=== PATIENT | female | born 1935 | race Caucasian/White ===

== ENCOUNTER 2018-05-05 17:58 | Inpatient (IN) | payer MEDICARE, MEDICAID ==
[~2018-05-05] VITALS: Ht 160 cm; Wt 85.3 kg
[~2018-05-05 17:58] MED LIST: ALPR1TAB2 PO; ASPI-1152 PO; ATEN50TA PO; CHOL200026 PO; FLUO20CA36 PO; LOSA100T15 PO; SIMV20TA6 PO; WARF4TAB41 PO
--- NOTE | 2018-05-05 18:30 | NUR ---
82 yo female bb ra from home. patient is alert and oriented, c/o SOB. patient denies any chest pain, patient is noted to be tachycardic. skin warm and dry, resp even and unlabored. sylvia negron from provider
[2018-05-05 18:51] LABS: BASOPHILS # (AUTO) 0.1 /CMM (0.0-0.2); BASOPHILS % (AUTO) 0.9 % (0.0-2.0); HEMATOCRIT 46 % (33-45); HEMOGLOBIN 15.4 g/dL (11.5-14.8); LYMPHOCYTES # (AUTO) 1.6 /CMM (0.8-4.8); LYMPHOCYTES % (AUTO) 20.9 % (20.0-44.0); MEAN CORPUSCULAR HGB CONC 33 g/dl (31.0-36.0); MEAN CORPUSCULAR VOLUME 91 fL (82-100); MONOCYTES # (AUTO) 0.6 /CMM (0.1-1.30); MONOCYTES % (AUTO) 8.3 % (2.0-12.0); NEUTROPHILS # (AUTO) 5.3 /CMM (1.8-8.9); NEUTROPHILS % (AUTO) 68.9 % (43.0-81.0); PLATELET COUNT (AUTO) 243 /CMM (150-450); RDW COEFFICIENT OF VARIATION 13.8 (11.5-15.0); RED BLOOD CELL COUNT(AUTO) 5.11 MIL/uL (4.0-5.2); WHITE BLOOD COUNT (AUTO) 7.7 K/uL (4.3-11.0)
[2018-05-05 19:08] LABS: INR 1.32 (0.85-1.15)
[2018-05-05] MEDS ORDERED: DILTIAZEM HCL 25 MG IV ONE (19:10)
[2018-05-05 19:23] LABS: CALCIUM, SERUM 8.7 mg/dL (8.5-10.1); CARBON DIOXIDE 18 mmol/L (21-32); CHLORIDE 103 mmol/L (98-107); CREATININE 1.4 mg/dL (0.6-1.3); GLUCOSE 126 mg/dL (74-106); POTASSIUM 4.5 mmol/L (3.5-5.1); SODIUM SERUM 135 mmol/L (136-145); UREA NITROGEN, BLOOD 20 mg/dL (7-18)
[2018-05-05 19:28] LABS: ALANINE AMINOTRANSFERASE 113 U/L (12-78); ALBUMIN 3.1 g/dL (3.4-5.0); ALKALINE PHOSPHATASE 78 U/L (46-116); ASPARTATE AMINOTRANSFERASE 42 U/L (15-37); BILIRUBIN,DIRECT 0.2 mg/dL (0.0-0.2); BILIRUBIN,TOTAL 0.6 mg/dL (0.2-1.0); TOTAL PROTEIN, SERUM 6.3 g/dL (6.4-8.2)
--- NOTE | 2018-05-05 19:29 | NUR ---
ACRYLIC FABRICATOR AT BEDSIDE
[2018-05-05] MEDS ORDERED: DILTIAZEM HCL 50 MG IV IV ONE (19:30)
--- NOTE | 2018-05-05 19:30 | NUR ---
IV STARTED BY PARAMEDICS HAS INFILTRATED. NEW LINE STARTED IV 20G RFA
[2018-05-05 19:36] LABS: TROPONIN I < 0.017 ng/mL (0.00-0.056)
[2018-05-05] MEDS ORDERED: IOHEXOL-350 100 ML VIAL IV ONE (19:56)
[2018-05-05] MEDS ORDERED: CT SWABBABLE VALVE TRANS SET 1 EA INFUS.SET MC ONE (19:57)
[2018-05-05] MEDS ORDERED: IV NS 0.9% 500 ML IV ONE (19:57)
[2018-05-05] MEDS ORDERED: IV NS 0.9% 1,000 ML BAG IV ONE (20:00)
[2018-05-05] MEDS ORDERED: CEFTRIAXONE 1 G in IV D5W 50 ML IV ONE (20:30)
[2018-05-05] MEDS ORDERED: methylPREDNISolone SOD SUCC 125 MG/2ML VIAL IV ONE (20:30)
[2018-05-05] MEDS ORDERED: methylPREDNISolone SOD SUCC 125 MG/2ML VIAL ONE (20:43)
[2018-05-05] MEDS ORDERED: CEFTRIAXONE 1 G VIAL ONE (20:43)
[2018-05-05] MEDS ORDERED: AZITHROMYCIN 500 MG VIAL ONE (20:43)
--- NOTE | 2018-05-05 20:48 | NUR ---
ASSIGNED TO [facility]#: [id number], DX: COPD EXACERBATION & A-FIB WITH RVR, ACCEPTING: JAYA RHODES.
[2018-05-05] MEDS ORDERED: HEPARIN SODIUM, PORCINE 5000 UNITS/1 ML VIAL IV ONE (21:00)
[2018-05-05] MEDS: AZITHROMYCIN 500 MG in IV D5W 250 ML IV SCH (21:04)
[2018-05-05] MEDS ORDERED: HEPARIN SODIUM, PORCINE 5000 UNITS/1 ML VIAL ONE (21:17)
[2018-05-05] MEDS ORDERED: HEPARIN INFUSION/D5W 500 ML IV ONE (21:27)
[2018-05-05] MEDS ORDERED: HEPARIN INFUSION/D5W 500 ML IV PRN ×3 (21:30→22:00)
[2018-05-05] MEDS ORDERED: RIVA10TA PO (21:43)
--- NOTE | 2018-05-05 21:43 | NUR ---
REPORT GIVEN TO KOKO
[2018-05-05] MEDS ORDERED: HYDROCODONE/APAP 10/325MG 1 EA TABLET PO PRN (22:00)
[2018-05-05] MEDS ORDERED: IPRATROPIUM NEB FS 0.5 MG/2.5 ML AMPUL.NEB NEB PRN (22:00)
[2018-05-05] MEDS ORDERED: ONDANSETRON HCL/PF 4 MG/2 ML VIAL IVP PRN (22:00)
[2018-05-05] MEDS ORDERED: ALBUTEROL FS 2.5 MG/0.5 ML VIAL.NEB NEB PRN (22:00)
[2018-05-05] MEDS ORDERED: HYDROCODONE/APAP 5/325MG 1 EACH TABLET PO PRN (22:00)
[2018-05-05] MEDS ORDERED: ACETAMINOPHEN 325 MG TABLET PO PRN (22:00)
[2018-05-05] MEDS ORDERED: MAGNESIUM HYDROXIDE 30 ML UDC PO PRN (22:00)
[2018-05-05] MEDS ORDERED: MAG HYDROX/AL HYDROX/SIMETH 30 ML UDC PO PRN (22:00)
[2018-05-05 22:20] VITALS: BP 140/98
--- NOTE | 2018-05-05 22:30 | NUR ---
COMPA RN ADMITTING NOTES PATIENT ADMITTED FROM ER W/ DX ACUTE PULMONARY EMBOLI & ACUTE DYSPNEA UNDER CARE OF JAYA RHODES. ARRIVED VIA BED TO ROOM 103 IN STABLE CONDITION W/ DAUGHTER. A/A/O X4, ABLE TO MAKE NEEDS KNOWN. SOB NOTED UPON EXERTION BUT OTHERWISE TOLERATING O2 @ 3LPM VIA NC. DENIES SOB OR DIFFICULTY BREATHING. ON TELE W/ UNCONTROLLED A-FIB, HR 117. DENIES CHEST PAIN OR DISCOMFORT. RIGHT FOREARM IV #20 INTACT & PATENT W/ DRESSING CDI & HEPARIN DRIP INFUSING WELL @ 1600 UNITS/KG. NO SIGNS OF INFILTRATION NOTED. SKIN ASSESSMENT DONE. SKIN WARM, DRY & INTACT W/ NO SKIN ISSUES IDENTIFIED. SAFETY MEASURES IN PLACE & INSTRUCTED TO USE CALL LIGHT FOR ASSISTANCE. AWAITING ADMITTING ORDERS. WILL CONTINUE TO MONITOR CLOSELY.
[2018-05-05] MEDS: LORAZEPAM 1 MG TABLET PO PRN (23:32)
[2018-05-06 03:43] LABS: HEMATOCRIT 46 % (33-45); HEMOGLOBIN 15.4 g/dL (11.5-14.8); LYMPHOCYTES # (AUTO) 0.7 /CMM (0.8-4.8); LYMPHOCYTES % (AUTO) 11.5 % (20.0-44.0); MEAN CORPUSCULAR HGB CONC 34 g/dl (31.0-36.0); MEAN CORPUSCULAR VOLUME 94 fL (82-100); MONOCYTES % (AUTO) 0.8 % (2.0-12.0); NEUTROPHILS # (AUTO) 5.5 /CMM (1.8-8.9); NEUTROPHILS % (AUTO) 87.7 % (43.0-81.0); PLATELET COUNT (AUTO) 232 /CMM (150-450); RED BLOOD CELL COUNT(AUTO) 4.85 MIL/uL (4.0-5.2); WHITE BLOOD COUNT (AUTO) 6.3 K/uL (4.3-11.0)
[2018-05-06 03:57] LABS: CALCIUM, SERUM 8.7 mg/dL (8.5-10.1); CARBON DIOXIDE 21 mmol/L (21-32); CHLORIDE 102 mmol/L (98-107); CREATININE 1.5 mg/dL (0.6-1.3); GLUCOSE 181 mg/dL (74-106); MAGNESIUM 2.1 mg/dL (1.8-2.4); PHOSPHORUS 3.5 mg/dL (2.5-4.9); POTASSIUM 4.6 mmol/L (3.5-5.1); SODIUM SERUM 134 mmol/L (136-145); UREA NITROGEN, BLOOD 18 mg/dL (7-18)
[2018-05-06 03:59] LABS: CHOLESTEROL 118 mg/dL (<200); HDL CHOLESTEROL 48 mg/dL (40-60); LDL 63 mg/dL (0-99); TRIGLYCERIDES 41 mg/dL (30-150)
[2018-05-06 04:00] VITALS: BP 150/103
--- NOTE | 2018-05-06 05:00 | NUR ---
COMPA RN NOTES RECEIVED PTT RESULT = 178 FROM RHIANNON. NOTIFIED JAYA RHODES W/ ORDER TO RE-DRAW PTT STAT. AWAITING NEW PTT RESULT.
--- NOTE | 2018-05-06 06:40 | NUR ---
RN NOTES CALLED LAB TO FOLLOW UP ON THE REPEAT PTT RESULT C/O PETER; NOT AVAILABLE YET PER PETER; THEY HAVE TO RE RUN THE RESULT
--- NOTE | 2018-05-06 07:29 | NUR ---
COMPA RN NOTES RECEIVED PTT RESULT = >170 FROM PETER. EPIC MD MAO ROBLEDO PAGED. WILL ENDORSE TO AM NURSE.
--- NOTE | 2018-05-06 07:40 | NUR ---
COMPA RN NOTE SPOKE WITH MAO WEST ENVIRONMENTAL ENGINEERING AIDE NOTIFIED ABOUT PTT 170 ,STATED THAT HE IS NOT ASSIGNED TO THIS PATIENT, WILL CALL BACK
[2018-05-06 08:00] VITALS: BP 160/100
--- NOTE | 2018-05-06 08:03 | NUR ---
COMPA WEST NOTE PATIENT IN BED , ALL NEEDS ATTENDED ON HEPARIN DRIP AT THIS TIME ,HOLD DUE TO PTT 170 , SPOKE WITH ALPESH WEST SILK SPREADER ,STATED TO HOLD AND DO PTT IN 6 HOUR REPEAT PATIENT ON TELE MONITOR AFIB1 HR 20 BED I LOWEST AND LOCKED POSITION CALL LIGHT WITHIN REACH, NO S\S BLEEDING NOTED ,BED IN LOWEST AND LOCKED POSITION Addendum: 05/06/18 at 1554 by DURAN MCINTYRE RN HR 120 AFIB , BED IN LOWEST POSITION
[2018-05-06] MEDS: CHOLECALCIFEROL 1,000 UNIT TABLET (VIT D3) PO SCH (08:17)
[2018-05-06] MEDS: PANTOPRAZOLE 40 MG TABLET.DR PO SCH (08:18)
[2018-05-06] MEDS: methylPREDNISolone SOD SUCC 40 MG/ML VIAL IV SCH ×3 (08:19→16:02)
[2018-05-06] MEDS ORDERED: FLUOXETINE HCL 20 MG CAPSULE PO SCH (09:00)
[2018-05-06] MEDS ORDERED: ASPIRIN EC 81 MG TABLET.DR PO SCH (09:00)
[2018-05-06] MEDS ORDERED: ATENOLOL 50 MG TABLET PO SCH (09:00)
--- NOTE | 2018-05-06 09:20 | NUR ---
BOTTLED BEVERAGE INSPECTOR NOTE ASSISTED TO BSC ABLE TO URINATE AND BM, KEEP CLEAN DRY ,CALL LIGHT WITHIN REACH
--- NOTE | 2018-05-06 09:43 | NUR ---
COMPA RN NOTE SPOKE WITH BELINDA JOHNSON RN 3RD GRADE READING TEACHER NOTIFIED THAT ASHLIE BETTS RN 3RD GRADE READING TEACHER OK TO HOLD HEPARIN DRIP AT THIS TIME AND RECHECK PTT AT 1400 , STATED ITS OK
--- NOTE | 2018-05-06 09:49 | NUR ---
DIRECTOR INSTRUCTIONAL MATERIAL NOTE SPOKE WITH DR GASTELUM NOTIFIED THAT PATIENT WAS ON HEPARIN DRIP AND ON HOLD AT THIS TIME 170 PTT ,ORDERED DO PTT 1000 ORDER CARRIED OUT
[2018-05-06] MEDS ORDERED: AZITHROMYCIN 500 MG in IV D5W 250 ML IV SCH (10:00)
--- NOTE | 2018-05-06 11:11 | NUR ---
COMPA RN NOTE PTT 84 STARTED HEPARIN DRIP AT 1400 UNIT \KG PER HOSPITAL PROTOCOL ,WILL DO PTT AT 1700
--- NOTE | 2018-05-06 11:29 | NUR ---
COMPA WEST NOTE SPOKE KYLE AMBROSIO STATED VI WE HAVE RESIDENCE DIRECTOR CONSULT Addendum: 05/06/18 at 1200 by DURAN MCINTYRE RN WIRE SAW OPERATOR AT BEDSIDEM ECHO AND DOPPLER STUDY DOING NOW Addendum: 05/06/18 at 1200 by DURAN MCINTYRE RN AT BEDSIDE
[2018-05-06 12:00] VITALS: BP 160/100
--- NOTE | 2018-05-06 13:08 | NUR ---
COMPA WEST NOTE PER DR HEBERT AGUERO STOPPED Addendum: 05/06/18 at 1431 by DURAN MCINTYRE RN DR AMBROSIO NOTIFIED THAT ON TELE MONITOR A FIB HR 126
--- NOTE | 2018-05-06 14:22 | NUR ---
COMPA WEST NOTE SPOKE WITH MAO ASTUDILLO RN INDUSTRIAL MAINTENANCE REPAIRER NOTIFIED THAT PER DR MUÑOZ HEPARIN DRIP IS STOPPED ,ON XARELTO AT THIS TIME
[2018-05-06] MEDS: IPRATROPIUM NEB FS 0.5 MG/2.5 ML AMPUL.NEB NEB SCH ×3 (15:30→23:02)
[2018-05-06 16:00] VITALS: BP 166/100
[2018-05-06] MEDS: LACTOBACILLUS RHAMNOSUS GG 1 EACH CAP.SPRINK PO SCH (17:12)
[2018-05-06] MEDS: RIVAROXABAN 10 MG TABLET PO SCH (17:12)
[2018-05-06] MEDS: METOPROLOL TARTRATE 50 MG TABLET PO SCH ×2 (17:13→23:54)
[2018-05-06] MEDS ORDERED: ALBUTEROL FS 2.5 MG/0.5 ML VIAL.NEB NEB PRN (18:00)
--- NOTE | 2018-05-06 18:39 | NUR ---
COMPA RN NOTE ALL NEEDS ATTENDED , NO SOB NOTED AT THIS TIME , RESTING COMFORTABLY, WILL CONT TO MONITOR CLOSELY
[2018-05-06 20:00] VITALS: BP_SYST 140; BP_SYST 178; BP_DIAS 116; BP_DIAS 88
--- NOTE | 2018-05-06 20:00 | NUR ---
RN COMPA INITIAL NOTE RECEIVED PT AWAKE IN BED AOX4, ON NC @ 3L, WELL KARIE, ALL NEEDS ATTENDED CLEAN AND DRY, S/P HEPARIN DRIP PTT WNR, DOPPLER - FOR DVT. WILL CONT TO MONITOR.
[2018-05-06] MEDS: AZITHROMYCIN 500 MG in IV D5W 250 ML IV SCH (20:36)
[2018-05-06] MEDS: SIMVASTATIN 20 MG TABLET PO SCH (21:13)
[2018-05-06] MEDS: CEFTRIAXONE 1 G in IV D5W 50 ML IV SCH (21:57)
[2018-05-06] MEDS: LORAZEPAM 1 MG TABLET PO PRN (23:52)
[2018-05-07] VITALS (8 sets, daily range): BP systolic 138–164; BP diastolic 55–107
[2018-05-07] MEDS ORDERED: NEPRO 1,000 ML BOTTLE GT PRN (00:30)
[2018-05-07] MEDS: IPRATROPIUM NEB FS 0.5 MG/2.5 ML AMPUL.NEB NEB SCH ×5 (03:30→19:30)
[2018-05-07] MEDS: METOPROLOL TARTRATE 50 MG TABLET PO SCH ×4 (06:27→23:58)
--- NOTE | 2018-05-07 06:32 | NUR ---
RN COMPA CLOSING NOTE PT ENDORSED ASLEEP, ABLE TO AWAKE FOR AM BP AND MEDS, HR TRENDING IN ST 100'S, WILL ENDORSE TO AM SHIFT TO F/U.
[2018-05-07 06:35] LABS: HEMATOCRIT 44 % (33-45); HEMOGLOBIN 14.4 g/dL (11.5-14.8); LYMPHOCYTES # (AUTO) 0.8 /CMM (0.8-4.8); LYMPHOCYTES % (AUTO) 5.6 % (20.0-44.0); MEAN CORPUSCULAR HGB CONC 33 g/dl (31.0-36.0); MEAN CORPUSCULAR VOLUME 95 fL (82-100); MONOCYTES # (AUTO) 0.5 /CMM (0.1-1.30); MONOCYTES % (AUTO) 3.3 % (2.0-12.0); NEUTROPHILS # (AUTO) 13.7 /CMM (1.8-8.9); NEUTROPHILS % (AUTO) 91.1 % (43.0-81.0); PLATELET COUNT (AUTO) 229 /CMM (150-450); RDW COEFFICIENT OF VARIATION 14.8 (11.5-15.0); RED BLOOD CELL COUNT(AUTO) 4.57 MIL/uL (4.0-5.2); WHITE BLOOD COUNT (AUTO) 15.1 K/uL (4.3-11.0)
[2018-05-07 06:58] LABS: CALCIUM, SERUM 8.6 mg/dL (8.5-10.1); CARBON DIOXIDE 24 mmol/L (21-32); CHLORIDE 103 mmol/L (98-107); CREATININE 1.4 mg/dL (0.6-1.3); GLUCOSE 154 mg/dL (74-106); POTASSIUM 4.6 mmol/L (3.5-5.1); SODIUM SERUM 136 mmol/L (136-145); UREA NITROGEN, BLOOD 23 mg/dL (7-18)
--- NOTE | 2018-05-07 07:33 | NUR ---
COMPA RN NOTE PATIENT IN BED, ALL NEEDS ATTENDED ON TELE MONITOR AFIB 113, ON 2L NC , NO SOB NOTED , RT FA HL INTACT , BED IN LOWEST AND LOCKED POSITION , CALL LIGHT WITHIN REACH , VS TAKEN ,WILL CONT TO MONITOR CLOSELY
[2018-05-07] MEDS ORDERED: ONDANSETRON 4 MG TAB.RAPDIS GT PRN (09:00)
[2018-05-07] MEDS: PANTOPRAZOLE 40 MG TABLET.DR PO SCH (09:00)
[2018-05-07] MEDS: CHOLECALCIFEROL 1,000 UNIT TABLET (VIT D3) PO SCH (09:00)
[2018-05-07] MEDS ORDERED: ONDANSETRON 4 MG TAB.RAPDIS PO PRN (09:00)
[2018-05-07] MEDS: RIVAROXABAN 10 MG TABLET PO SCH (09:01)
[2018-05-07] MEDS: methylPREDNISolone SOD SUCC 40 MG/ML VIAL IV SCH ×3 (09:03→16:20)
[2018-05-07] MEDS: LACTOBACILLUS RHAMNOSUS GG 1 EACH CAP.SPRINK PO SCH ×2 (09:03→16:20)
--- NOTE | 2018-05-07 12:30 | NUR ---
COMPA RN NOTE KEEP CLEAN DRY, ASSISTED TO BSC , ABLE TO URINATE WELL , ALL NEEDS ATTENDED, SEEN DR GASTELUM, JOSE F\U
--- NOTE | 2018-05-07 14:47 | NUR ---
COMPA WEST NOTE ELIZAUTNF MADE ,RESTING COMFORTABLY ,NOT IN ACUTE DIGRESS Addendum: 05/07/18 at 1550 by DURAN MCINTYRE RN ROUND MADE NOT IN ACUTE DISTRESS
--- NOTE | 2018-05-07 15:00 | NUR ---
COMPA RN NOTE DR SMALLWOOD AT BEDSIDE NOTIFIED THAT PER DAUGHTER XARELTO NOT COVERAGE WITH INSURANCE STATED THAT WILL CHECK IT OUT
--- NOTE | 2018-05-07 15:52 | NUR ---
COMPA RN NOTE CALLED JUNE EGG WORKER . ASKED TO CALL TO DAUGHTER REGARDING INSURANCE PHONE NUMBER GIVEN
[2018-05-07 16:17] LABS: INR 1.18 (0.87-1.13)
[2018-05-07] MEDS: WARFARIN SODIUM 5 MG TABLET PO SCH (17:19)
--- NOTE | 2018-05-07 18:23 | NUR ---
COMPA RN NOTE HAVING DINNER , ALL NEEDS ATTENDED ,NOT IN ACUTE DISTRESS
--- NOTE | 2018-05-07 20:00 | NUR ---
RN COMPA INITIAL NOTE RECEIVED PT AWAKE IN BED AOX4, ON NC @ 3L, WELL KARIE, ALL NEEDS ATTENDED CLEAN AND DRY, PICKED UP FOR CT ABD AT 0750 AND BACK AT 1999. DENIES ANY PAIN OR DISCOMFORT, ALL NEEDS ATTENDED, CL WR.
[2018-05-07] MEDS: AZITHROMYCIN 500 MG in IV D5W 250 ML IV SCH (20:41)
[2018-05-07] MEDS: SIMVASTATIN 20 MG TABLET PO SCH (21:23)
[2018-05-07] MEDS: LORAZEPAM 1 MG TABLET PO PRN (21:23)
[2018-05-07] MEDS: CEFTRIAXONE 1 G in IV D5W 50 ML IV SCH (21:23)
[2018-05-08] VITALS: BP 133/93
[2018-05-08] MEDS: IPRATROPIUM NEB FS 0.5 MG/2.5 ML AMPUL.NEB NEB SCH ×7 (00:06→22:35)
[2018-05-08 04:00] VITALS: BP 146/96
[2018-05-08] MEDS: METOPROLOL TARTRATE 50 MG TABLET PO SCH ×4 (05:39→21:22)
--- NOTE | 2018-05-08 06:13 | NUR ---
RN COMPA CLOSING NOTE PT CONT COMPA, AFIB UNCONTROLLED ST 117 LOPRESSOR DOSAGE GIVEN ORDERED, WILL ENDORSE TO AM SHIFT RN TO MONITOR, DR AMBROSIO OUTSIDE INSTALLATION MACHINIST AWARE. WILL CHACORTA, PT ABLE TO HAVE BM X1 L AND 500 ML URINE O/P.
[2018-05-08 06:45] LABS: HEMATOCRIT 44 % (33-45); HEMOGLOBIN 14.6 g/dL (11.5-14.8); LYMPHOCYTES # (AUTO) 0.9 /CMM (0.8-4.8); LYMPHOCYTES % (AUTO) 6.5 % (20.0-44.0); MEAN CORPUSCULAR HGB CONC 33 g/dl (31.0-36.0); MEAN CORPUSCULAR VOLUME 95 fL (82-100); MONOCYTES # (AUTO) 0.4 /CMM (0.1-1.30); NEUTROPHILS # (AUTO) 12.6 /CMM (1.8-8.9); NEUTROPHILS % (AUTO) 90.5 % (43.0-81.0); PLATELET COUNT (AUTO) 233 /CMM (150-450); RDW COEFFICIENT OF VARIATION 14.9 (11.5-15.0); RED BLOOD CELL COUNT(AUTO) 4.63 MIL/uL (4.0-5.2); WHITE BLOOD COUNT (AUTO) 13.9 K/uL (4.3-11.0)
[2018-05-08 07:04] LABS: CALCIUM, SERUM 8.9 mg/dL (8.5-10.1); CARBON DIOXIDE 21 mmol/L (21-32); CHLORIDE 103 mmol/L (98-107); CREATININE 1.4 mg/dL (0.6-1.3); GLUCOSE 147 mg/dL (74-106); POTASSIUM 5.1 mmol/L (3.5-5.1); SODIUM SERUM 137 mmol/L (136-145); UREA NITROGEN, BLOOD 24 mg/dL (7-18)
--- NOTE | 2018-05-08 07:30 | NUR ---
COMPA RN INITIAL NOTES RECEIVED PATIENT AWAKE IN BED, AOX3, NO SIGNS OF SOB OR DISTRESS, ON NC 3L, SATURATING WELL, ON TELE MONITORING AFIB 127HR, IV R FA 20G, CLEAN AND PATENT, BED IN LOW AND LOCKED POSITION CALL LIGHT WITHIN REACH, WILL CONTINUE TO MONITOR.
[2018-05-08 08:00] VITALS: BP_SYST 148; BP_DIAS 100; BP_DIAS 106
[2018-05-08] MEDS: PANTOPRAZOLE 40 MG TABLET.DR PO SCH (08:24)
[2018-05-08] MEDS: CHOLECALCIFEROL 1,000 UNIT TABLET (VIT D3) PO SCH (08:24)
[2018-05-08] MEDS: LACTOBACILLUS RHAMNOSUS GG 1 EACH CAP.SPRINK PO SCH ×2 (08:24→17:12)
[2018-05-08] MEDS: methylPREDNISolone SOD SUCC 40 MG/ML VIAL IV SCH ×3 (08:24→17:12)
[2018-05-08] MEDS: ENOXAPARIN SODIUM 80 MG/0.8 ML DISP.SYRIN SQ SCH ×2 (08:25→21:27)
[2018-05-08 10:44] LABS: INR 1.3 (0.87-1.13)
[2018-05-08] MEDS: DIGOXIN INJ 0.5 MG/2 ML AMPUL IV SCH ×3 (11:53→23:57)
[2018-05-08 16:00] VITALS: BP 169/103
[2018-05-08] MEDS: WARFARIN SODIUM 5 MG TABLET PO SCH (17:17)
--- NOTE | 2018-05-08 18:31 | NUR ---
TREATMENT PLANT MECHANIC END NOTES PATIENT IS RESTING IN BED, ALL NEEDS ATTENDED TO, NO SIGNS OF DISTRESS, WILL ENDORSE TO TRAFFIC II MANAGER FOR CONTINUITY OF CARE.
--- NOTE | 2018-05-08 19:30 | NUR ---
MS OLY INITIAL NOTES RECEIVED PT IN BED AWAKE AND ALERT WATCHING TV WITH BREATHING TREATMENT AT THIS TIME. NO SIGNS OF ANY ACUTE DISTRESS NOTED. NOTICED BOTH ARMS HAD BRUISE. SKIN WARM AND DRY TO TOUCH. DENIES ANY PAIN OR ANY DISCOMFORT. KEPT HER WARM AND COMFORTABLE AT ALL TIMES. WILL CONTINUE TO MONITOR. PLACE CALL LIGHT AT REACH.
[2018-05-08 20:00] VITALS: BP 189/120
[2018-05-08] MEDS: AZITHROMYCIN 500 MG in IV D5W 250 ML IV SCH (20:18)
[2018-05-08] MEDS: SIMVASTATIN 20 MG TABLET PO SCH (21:21)
--- NOTE | 2018-05-08 21:22 | NUR ---
MS OLY NOTES LOPRESSOR 50 MG GIVEN PER JAYA RHODES/SUPERVISOR SCENIC ARTS ORDERED BECAUSE HIS BLOOD PRESSURE IS 189/120 AND HEART RATE 118. DENIES ANY CHEST PAIN OR ANY DISCOMFORT. SHE STATED SHE JUST UPSET EARLIER. WILL CONTINUE TO MONITOR.
[2018-05-08] MEDS: LORAZEPAM 1 MG TABLET PO PRN (21:23)
[2018-05-08] MEDS: CEFTRIAXONE 1 G in IV D5W 50 ML IV SCH (22:35)
[2018-05-09] VITALS (12 sets, daily range): BP systolic 138–186; BP diastolic 86–116
--- NOTE | 2018-05-09 | NUR ---
MS OLY NOTES PT AWAKE AND ALERT. LAST DOSE OF DIGOXIN GIVEN YISEL IVF ORDERED. PT REFUSED TO RE CHECKED HER VITAL SIGNS , EVEN WE EXPLAINED TO HER WHY WE NEED IT. SHE STATED I'M OK . NO SIGNS OF ANY ACUTE DISTRESS NOTED. ALL DUE ANTIBIOTIC INFUSED NO ADVERSE REACTION NOTED. WILL CONTINUE TO MONITOR.
[2018-05-09] MEDS: IPRATROPIUM NEB FS 0.5 MG/2.5 ML AMPUL.NEB NEB SCH ×6 (03:11→23:30)
--- NOTE | 2018-05-09 04:00 | NUR ---
MS ENGINEERING TECHNICAL WRITER NOTES PT SLEEPING COMFORTABLY IN BED WITHOUT ANY ACUTE DISTRESS NOTED. KEPT HER WARM AND COMFORTABLE AT ALL TIMES. PLACE CALL LIGHT AT REACH.
[2018-05-09] MEDS: PANTOPRAZOLE 40 MG TABLET.DR PO SCH (06:42)
[2018-05-09] MEDS: METOPROLOL TARTRATE 50 MG TABLET PO SCH ×4 (06:49→23:08)
--- NOTE | 2018-05-09 07:48 | NUR ---
MS MULTI NEEDLE MACHINE OPERATOR CLOSING NOTES PT BACK TO SLEEP AFTER DUE MEDS GIVEN , DENIES ANY CHEST PAIN OR ANY DISCOMFORT. NO SOB NOTED. SLEPT WELL AND STABEL YISEL THE NIGHT EXCEPT HER BLOOD PRESSURE. KEPT HER WARM AND COMFORTABLE AT ALL TIMES,. ENDORSE TO AM NURSE FOR CONTINUITY OF CARE. PLACE CALL LIGHT AT REACH.
--- NOTE | 2018-05-09 08:05 | NUR ---
RT PATIENT REFUSED HHN TX, STATING THAT THE TX'S DO NOT DO ANYTHING FOR HER. B/S CLEAR, NO SOB NOTED.
[2018-05-09] MEDS: CHOLECALCIFEROL 1,000 UNIT TABLET (VIT D3) PO SCH (08:27)
[2018-05-09] MEDS: methylPREDNISolone SOD SUCC 40 MG/ML VIAL IV SCH ×3 (08:27→16:59)
[2018-05-09] MEDS: LACTOBACILLUS RHAMNOSUS GG 1 EACH CAP.SPRINK PO SCH ×2 (08:27→16:58)
[2018-05-09] MEDS: ENOXAPARIN SODIUM 80 MG/0.8 ML DISP.SYRIN SQ SCH ×2 (08:29→20:12)
--- NOTE | 2018-05-09 08:50 | NUR ---
RN INITIAL NOTES: RECEIVED REPORT FROM CARLOS. PATIENT RESTING IN BED. DENYING CHEST PAIN. DENYING HEADACHES. PATIENT AOX4. NONLABORED BREATHING NOTED ON 2 L NASAL CANNULA CANNULA. IV SITE ON RIGHT FOREARM #20 ON RIGHT FOREARM. BED IN LOWEST LOCKED POSITION. CALL LIGHT WITHIN REACH.
--- NOTE | 2018-05-09 09:08 | NUR ---
DR AMBROSIO INFORMED OF BP READING
[2018-05-09] MEDS: hydrALAZINE HCL 50 MG TABLET PO SCH ×3 (09:37→16:58)
[2018-05-09 10:43] LABS: INR 1.69 (0.87-1.13)
[2018-05-09] MEDS: NITROGLYCERIN 30 GM TUBE TP SCH ×2 (11:14→20:15)
[2018-05-09] MEDS: DIGOXIN 0.125 MG TABLET PO SCH (13:39)
--- NOTE | 2018-05-09 15:10 | NUR ---
RT PATIENT SLEEPING DID NOT WANT TO BE DISTURBED BY BREATHING TX AT THIS TIME.
[2018-05-09] MEDS: WARFARIN SODIUM 5 MG TABLET PO SCH (16:52)
--- NOTE | 2018-05-09 19:05 | NUR ---
MS RN NOTES: RECEIVED PT IN BED AND IS AWAKE. PT IS A/OX4. PT IS ON 2LPM VIA NC. IV REMAINS INTACT. CURRENTLY S/L. CALL LIGHT WITHIN PT'S REACH. BED KEPT IN LOW, LOCKED POSITION, AND SIDE RAILS X 2UP. WILL CONTINUE TO MONITOR PT.
--- NOTE | 2018-05-09 19:20 | NUR ---
RN CLOSING NOTES: PATIENT RESTING IN BED. NONLABORED BREATHING NOTED ON 2 L NASAL CANNULA. PATIENT AOX4. DENYING CHEST PAIN AND DENYING HEADACHES. IV SITE ON RIGHT FOREARM 20 PATENT AND INTACT. BED IN LOWEST LOCKED POSITION. CALL LIGHT WITHIN REACH. ENDORSED TO NEXT SHIFT
[2018-05-09] MEDS: CEFTRIAXONE 1 G in IV D5W 50 ML IV SCH (20:11)
[2018-05-09] MEDS: SIMVASTATIN 20 MG TABLET PO SCH (21:21)
--- NOTE | 2018-05-09 21:22 | NUR ---
MS RN NOTES: HAD TO MANUALLY ADMIN ZOCOR 20MG GUN WOULDN'T SCAN MED. BARCODE WAS RIPPED SLIGHTLY.
[2018-05-09] MEDS: LORAZEPAM 1 MG TABLET PO PRN (22:47)
[2018-05-10] MEDS: IPRATROPIUM NEB FS 0.5 MG/2.5 ML AMPUL.NEB NEB SCH ×4 (02:36→15:25)
[2018-05-10 05:11] VITALS: BP 159/81
[2018-05-10] MEDS: METOPROLOL TARTRATE 50 MG TABLET PO SCH (05:34)
[2018-05-10 06:22] LABS: BASOPHILS % (AUTO) 0.1 % (0.0-2.0); HEMATOCRIT 46 % (33-45); HEMOGLOBIN 15.4 g/dL (11.5-14.8); LYMPHOCYTES # (AUTO) 0.8 /CMM (0.8-4.8); LYMPHOCYTES % (AUTO) 8.9 % (20.0-44.0); MEAN CORPUSCULAR HGB CONC 33 g/dl (31.0-36.0); MEAN CORPUSCULAR VOLUME 95 fL (82-100); MONOCYTES # (AUTO) 0.7 /CMM (0.1-1.30); MONOCYTES % (AUTO) 7.6 % (2.0-12.0); NEUTROPHILS # (AUTO) 7.5 /CMM (1.8-8.9); NEUTROPHILS % (AUTO) 83.4 % (43.0-81.0); PLATELET COUNT (AUTO) 204 /CMM (150-450); RDW COEFFICIENT OF VARIATION 14.5 (11.5-15.0); RED BLOOD CELL COUNT(AUTO) 4.86 MIL/uL (4.0-5.2)
--- NOTE | 2018-05-10 06:32 | NUR ---
MS RN CLOSING NOTES: ALL NEEDS WERE ATTENDED AND ANTICIPATED FOR. PT RESTING IN BED AT THIS TIME. PT ON ROOM AIR. PT HAS O2 SUPP AT BEDSIDE. CALL LIGHT WITHIN PT'S REACH. BED KEPT IN LOW, LOCKED POSITION, AND SIDE RAILS X 2UP. IV REMAINS INTACT. PT CURRENTLY S/L. WILL ENDORSE TO AM NURSE FOR CHACORTA.
[2018-05-10 06:35] LABS: ALANINE AMINOTRANSFERASE 185 U/L (12-78); ALBUMIN 2.9 g/dL (3.4-5.0); ALKALINE PHOSPHATASE 65 U/L (46-116); ASPARTATE AMINOTRANSFERASE 31 U/L (15-37); BILIRUBIN,TOTAL 0.5 mg/dL (0.2-1.0); CALCIUM, SERUM 8.8 mg/dL (8.5-10.1); CARBON DIOXIDE 28 mmol/L (21-32); CHLORIDE 101 mmol/L (98-107); CREATININE 1.2 mg/dL (0.6-1.3); GLUCOSE 131 mg/dL (74-106); INR 2.12 (0.87-1.13); MAGNESIUM 2.4 mg/dL (1.8-2.4); PHOSPHORUS 4.5 mg/dL (2.5-4.9); SODIUM SERUM 136 mmol/L (136-145); TOTAL PROTEIN, SERUM 5.9 g/dL (6.4-8.2); UREA NITROGEN, BLOOD 25 mg/dL (7-18)
--- NOTE | 2018-05-10 07:30 | NUR ---
COMMERCIAL DRIVER'S LICENSE DRIVER INITIAL NOTES RECEIVED PATIENT IN BED AWAKE, AOX3, NC 2L, SATURATING WELL, NO DISTRESS NOTED, IV R FA 20G, CLEAN AND PATENT, AMBULATORY, BED IN LOW AND LOCKED POSITION CALL LIGHT WITHIN REACH, WILL CONTINUE TO MONITOR.
[2018-05-10 08:00] VITALS: BP 144/109
[2018-05-10] MEDS: methylPREDNISolone SOD SUCC 40 MG/ML VIAL IV SCH (08:52)
[2018-05-10] MEDS: LACTOBACILLUS RHAMNOSUS GG 1 EACH CAP.SPRINK PO SCH ×2 (08:52→16:32)
[2018-05-10] MEDS: PANTOPRAZOLE 40 MG TABLET.DR PO SCH (08:52)
[2018-05-10] MEDS: CHOLECALCIFEROL 1,000 UNIT TABLET (VIT D3) PO SCH (08:53)
[2018-05-10] MEDS: hydrALAZINE HCL 50 MG TABLET PO SCH ×3 (08:53→16:33)
[2018-05-10] MEDS: NITROGLYCERIN 30 GM TUBE TP SCH (08:54)
[2018-05-10] MEDS: ENOXAPARIN SODIUM 80 MG/0.8 ML DISP.SYRIN SQ SCH (08:55)
[2018-05-10] MEDS ORDERED: predniSONE 20 MG TABLET PO SCH (09:30)
[2018-05-10] MEDS: ISOSORBIDE DINITRATE (20MG) 20 MG TABLET PO SCH ×2 (09:30→16:32)
[2018-05-10] MEDS: DIGOXIN 0.125 MG TABLET PO SCH (14:16)
[2018-05-10 16:00] VITALS: BP 147/108
[2018-05-10] MEDS: WARFARIN SODIUM 5 MG TABLET PO SCH (16:34)
[2018-05-10 17:00] VITALS: BP 127/79
[2018-05-10] MEDS ORDERED: METOPROLOL TARTRATE 50 MG TABLET PO SCH (17:00)
--- NOTE | 2018-05-10 17:00 | NUR ---
BENCH GRINDER NOTES PATIENT DISCHARGE ORDERS GIVEN BY DR ROBLEDO, ALL DISCHARGE PAPERWORK GIVEN, ALL DUE MEDICATIONS GIVEN, PATIENT DC FOLLOW-UP APPOINTMENT INFORMATION GIVEN, TEACHING DONE ABOUT NEW MEDICATIONS PRESCRIBED, SIDE EFFECTS AND INSTRUCTIONS GIVEN, PATIENT AND BOTH DAUGHTERS, VERBALIZED UNDERSTANDING, HOME HEALTH FOR ASSISTED HOME HEALTH GIVEN, BELONGINGS LIST SIGNED, SKIN INTACT. ALL QUESTIONS ANSWERED AND ADDRESSED.
== END 2018-05-10 17:14 | disposition home health service (06) | DRG 175 ==
LOC: ER 17:59 → TELE 21:17 → TELE-TD 22:20 → MEDSG1 05-08 09:29
PROVIDERS: ADMIT Nurse Practitioner Acute Care; ATTEND Nurse Practitioner Acute Care
DX: I26.99 Other pulmonary embolism without acute cor pulmonale (principal); J15.9 Unspecified bacterial pneumonia; N17.0 Acute kidney failure with tubular necrosis; E44.0 Moderate protein-calorie malnutrition; J44.1 Chronic obstructive pulmonary disease with (acute) exacerbation; J90 Pleural effusion, not elsewhere classified; D68.59 Other primary thrombophilia; I48.91 Unspecified atrial fibrillation; E78.5 Hyperlipidemia, unspecified; F32.9 Major depressive disorder, single episode, unspecified; F41.9 Anxiety disorder, unspecified; Z96.649 Presence of unspecified artificial hip joint; Z87.891 Personal history of nicotine dependence; R74.0 Nonspecific elevation of levels of transaminase and lactic acid dehydrogenase [LDH]; E66.9 Obesity, unspecified; Z68.33 Body mass index [BMI] 33.0-33.9, adult; E55.9 Vitamin D deficiency, unspecified; I12.9 Hypertensive chronic kidney disease with stage 1 through stage 4 chronic kidney disease, or unspecified chronic kidney disease; N18.9 Chronic kidney disease, unspecified; Z79.01 Long term (current) use of anticoagulants; Z91.19 Patient's noncompliance with other medical treatment and regimen; Z91.14 Patient's other noncompliance with medication regimen; G47.33 Obstructive sleep apnea (adult) (pediatric); Z86.718 Personal history of other venous thrombosis and embolism; D72.829 Elevated white blood cell count, unspecified; D75.1 Secondary polycythemia
CPT/HCPCS: 36415; 71045-TC; 80048-TC; 80053-TC; 80061-TC; 80076-TC; 83605-TC; 83735-TC; 83891; 83900; 83909; 83912; 84100-TC; 84443-TC; 84484-TC; 85025-TC; 85378-TC; 85610-TC; 85730-TC; 87040-TC; 87081-TC; 93307-TC; 93970-TC; A4606; J0456; J0696; J1160; J1644; J1650; J2920; J2930; J3490; J7040; J7060; Q9967; Z7610